=== PATIENT | male | born 1995 | race Caucasian/White ===

== ENCOUNTER 2017-01-06 07:07 | Emergency (ER) | payer MEDICAID ==
[~2017-01-06] VITALS: Ht 175.3 cm; Wt 75.0 kg
[~2017-01-06 07:07] MED LIST: INSU100I3 SQ; INSU3INS6 SUBCUT
[2017-01-06] MEDS ORDERED: ONDANSETRON HCL 4MG/2ML VIAL IV STA (07:38)
[2017-01-06] MEDS ORDERED: SODIUM CHLORIDE 0.9% 1,000 ML IV ONE (07:38)
[2017-01-06 07:57] VITALS: BP 128/76
[2017-01-06] MEDS ORDERED: KETOROLAC 30MG/ML VIAL IV ONE (08:00)
[2017-01-06 08:50] LABS: INR 1.2
[2017-01-06 08:56] LABS: BASOPHILS % 0.3 % (0.0-2.0); HEMOGLOBIN. 14.2 g/dL (14.0-18.0); LYMPHOCYTES % 11.3 % (20.0-50.0); MEAN CORPUSCULAR HEMOGLOBIN 29.3 pg (28.0-32.0); MEAN CORPUSCULAR VOLUME 84.5 fL (80.0-94.0); MEAN PLATELET VOLUME 8.6 fl (7.4-10.4); MONOCYTES % 7.7 % (2.0-8.0); NEUTROPHILS % 80.7 % (40.0-76.0); PLATELET 222 x1000/uL (130-400); RED BLOOD CELL COUNT 4.86 mill/uL (4.7-6.1); RED CELL DISTRIBUTION WIDTH 12.5 % (11.6-14.6)
[2017-01-06 08:58] LABS: CARBON DIOXIDE 26 mEq/L (21-32); CHLORIDE 105 mEq/L (98-107)
[2017-01-06 10:26] LABS: CLARITY URINE CLEAR (CLEAR); COLOR URINE YELLOW (YELLOW); GLUCOSE URINE 1+ (NEGATIVE); KETONES URINE 3+ (NEGATIVE); LEUKOCYTE ESTERASE URINE 2+ (NEGATIVE); NITRITE URINE NEGATIVE (NEGATIVE); OCCULT BLOOD URINE NEGATIVE (NEGATIVE); PROTEIN URINE NEGATIVE (NEGATIVE); SPECIFIC GRAVITY URINE 1.017 (1.005-1.030)
[2017-01-06 11:01] LABS: *AMPHETAMINES SCREEN URINE NEGATIVE (NEGATIVE); *BARBITURATES SCREEN URINE NEGATIVE (NEGATIVE); *BENZODIAZEPINES SCREEN URINE NEGATIVE (NEGATIVE); *COCAINE SCREEN URINE NEGATIVE (NEGATIVE); CANNABINOID URINE SCREEN PRESUMTIVE POSITIVE (NEGATIVE); METHADONE URINE SCREEN NEGATIVE (NEGATIVE); OPIATES URINE SCREEN PRESUMTIVE POSITIVE (NEGATIVE); PHENCYCLIDINE URINE SCREEN NEGATIVE (NEGATIVE)
== END 2017-01-06 11:35 | disposition home or self-care (01) ==
LOC: ER 07:16
DX: N39.0 Urinary tract infection, site not specified (principal); E11.9 Type 2 diabetes mellitus without complications; F12.10 Cannabis abuse, uncomplicated; Z79.4 Long term (current) use of insulin
CPT/HCPCS: 36415; 80053; 80305; 81001; 82962; 83690; 85025; 85610; 96361; 96374; 96375; 99284; J1885; J2405; Z7610; J7030

== ENCOUNTER 2017-03-18 18:06 | Emergency (ER) | payer MEDICAID ==
[~2017-03-18] VITALS: Ht 175.3 cm; Wt 98.0 kg
[~2017-03-18 18:06] MED LIST changes: +INSU100I13 SQ; +LANTUSUD SUBCUT; +OMEP20CA10 PO; +TRAM50TA94 PO
[2017-03-18] MEDS ORDERED: SODIUM CHLORIDE 0.9% 1,000 ML IV ONE (18:32)
[2017-03-18] MEDS ORDERED: KETOROLAC 30MG/ML VIAL IV STA (18:32)
[2017-03-18] MEDS ORDERED: FAMOTIDINE 20MG/2ML VIAL IV STA (18:32)
[2017-03-18] MEDS ORDERED: ONDANSETRON HCL 4MG/2ML VIAL IV STA (18:32)
[2017-03-18 19:11] LABS: HEMATOCRIT. 40.9 % (42.0-52.0); HEMOGLOBIN. 13.7 g/dL (14.0-18.0); MEAN CORPUSCULAR HEMOGLOBIN 28.2 pg (28.0-32.0); MEAN CORPUSCULAR VOLUME 84.2 fL (80.0-94.0); MEAN PLATELET VOLUME 8.7 fl (7.4-10.4); PLATELET 225 x1000/uL (130-400); RED BLOOD CELL COUNT 4.86 mill/uL (4.7-6.1); RED CELL DISTRIBUTION WIDTH 13.3 % (11.6-14.6)
[2017-03-18] MEDS ORDERED: LORAZEPAM 2MG/ML CPJ IV ONE (19:15)
[2017-03-18] MEDS ORDERED: METOCLOPRAMIDE HCL 10MG/2ML VIAL IV ONE (19:15)
[2017-03-18 19:17] LABS: INR 1.1; PROTHROMBIN TIME 11.7 sec (9.4-11.6)
[2017-03-18 19:24] LABS: CARBON DIOXIDE 24 mEq/L (21-32); CHLORIDE 102 mEq/L (98-107)
[2017-03-18 19:49] LABS: PLATELET ESTIMATE NORMAL
[2017-03-18 20:24] LABS: CLARITY URINE CLEAR (CLEAR); COLOR URINE YELLOW (YELLOW); KETONES URINE 4+ (NEGATIVE); LEUKOCYTE ESTERASE URINE NEGATIVE (NEGATIVE); NITRITE URINE NEGATIVE (NEGATIVE); OCCULT BLOOD URINE NEGATIVE (NEGATIVE); PROTEIN URINE NEGATIVE (NEGATIVE); SPECIFIC GRAVITY URINE 1.032 (1.005-1.030); UROBILINOGEN URINE 0.2 E.U./dL (0.2-1.0)
[2017-03-18 20:42] LABS: *AMPHETAMINES SCREEN URINE NEGATIVE (NEGATIVE); *BARBITURATES SCREEN URINE NEGATIVE (NEGATIVE); *BENZODIAZEPINES SCREEN URINE NEGATIVE (NEGATIVE); *COCAINE SCREEN URINE NEGATIVE (NEGATIVE); CANNABINOID URINE SCREEN PRESUMTIVE POSITIVE (NEGATIVE); METHADONE URINE SCREEN NEGATIVE (NEGATIVE); OPIATES URINE SCREEN NEGATIVE (NEGATIVE); PHENCYCLIDINE URINE SCREEN NEGATIVE (NEGATIVE)
[2017-03-19] MEDS ORDERED: SODIUM CHLORIDE 0.9% 1,000 ML IV ONE (01:36)
[2017-03-19] MEDS ORDERED: MORPHINE SULFATE 10 MG/ML CPJ IV ONE (01:45)
[2017-03-19] MEDS ORDERED: MORPHINE SULFATE 10 MG/ML CPJ IV NR (02:00)
[2017-03-19 04:22] VITALS: BP 121/72
== END 2017-03-19 04:35 | disposition home or self-care (01) ==
LOC: ER 18:06
DX: E11.65 Type 2 diabetes mellitus with hyperglycemia (principal); R10.13 Epigastric pain; F12.10 Cannabis abuse, uncomplicated; Z79.4 Long term (current) use of insulin
CPT/HCPCS: 36415; 74176; 80053; 80305; 81001; 82962; 83690; 85025; 85610; 96361; 96374; 96375; 99285; J1885; J2060; J2270; J2405; J2765; J3490; J7030

== ENCOUNTER 2017-06-10 19:34 | Emergency (ER) | payer MEDICAID ==
[~2017-06-10] VITALS: Ht 175.3 cm; Wt 84.0 kg
[2017-06-10] MEDS: KETOROLAC 30MG/ML VIAL IV STA (21:25)
[2017-06-10 21:46] LABS: CLARITY URINE CLEAR (CLEAR); COLOR URINE YELLOW (YELLOW); KETONES URINE 1+ (NEGATIVE); LEUKOCYTE ESTERASE URINE NEGATIVE (NEGATIVE); NITRITE URINE NEGATIVE (NEGATIVE); OCCULT BLOOD URINE NEGATIVE (NEGATIVE); PH URINE 8.5 (4.5-8.0); PROTEIN URINE NEGATIVE (NEGATIVE); UROBILINOGEN URINE 0.2 E.U./dL (0.2-1.0)
[2017-06-10 21:48] LABS: BASOPHILS % 0.4 % (0.0-2.0); EOSINOPHILS % 0.2 % (0.0-5.0); HEMATOCRIT. 42.2 % (42.0-52.0); HEMOGLOBIN. 14.2 g/dL (14.0-18.0); INR 1.1; MEAN CORPUSCULAR HEMOGLOBIN 28.8 pg (28.0-32.0); MEAN CORPUSCULAR VOLUME 85.6 fL (80.0-94.0); MEAN PLATELET VOLUME 7.9 fl (7.4-10.4); MONOCYTES % 6.1 % (2.0-8.0); NEUTROPHILS % 78.3 % (40.0-76.0); PLATELET 259 x1000/uL (130-400); PROTHROMBIN TIME 11.5 sec (9.4-11.6); RED BLOOD CELL COUNT 4.93 mill/uL (4.7-6.1); RED CELL DISTRIBUTION WIDTH 14.1 % (11.6-14.6)
[2017-06-10 21:52] LABS: CHLORIDE 103 mEq/L (98-107)
[2017-06-10] MEDS: METOCLOPRAMIDE HCL 10MG/2ML VIAL IV ONE (22:13)
[2017-06-11 00:06] VITALS: BP 101/68
== END 2017-06-11 00:10 | disposition home or self-care (01) ==
LOC: ER 20:45
DX: E10.43 Type 1 diabetes mellitus with diabetic autonomic (poly)neuropathy (principal); K31.84 Gastroparesis; R10.9 Unspecified abdominal pain; E10.65 Type 1 diabetes mellitus with hyperglycemia; F17.200 Nicotine dependence, unspecified, uncomplicated; Z79.4 Long term (current) use of insulin
CPT/HCPCS: 36415; 76700; 80053; 81003; 82962; 83690; 85025; 85610; 96374; 96375; 99285; J1885; J2765; Z7610

== ENCOUNTER 2017-06-11 13:24 | Emergency (ER) | payer MEDICAID ==
[~2017-06-11] VITALS: Ht 180.3 cm; Wt 81.0 kg
[2017-06-11] MEDS ORDERED: KETOROLAC 30MG/ML VIAL IV STA (14:46)
[2017-06-11] MEDS ORDERED: SODIUM CHLORIDE 0.9% 1,000 ML IV ONE (14:46)
[2017-06-11] MEDS ORDERED: ONDANSETRON HCL 4MG/2ML VIAL IV STA (14:46)
[2017-06-11] MEDS ORDERED: FAMOTIDINE 20MG/2ML VIAL IV ONE (15:00)
[2017-06-11 15:15] LABS: BASOPHILS % 0.2 % (0.0-2.0); EOSINOPHILS % 0.1 % (0.0-5.0); HEMATOCRIT. 46.7 % (42.0-52.0); HEMOGLOBIN. 15.3 g/dL (14.0-18.0); LYMPHOCYTES % 14.7 % (20.0-50.0); MEAN CORPUSCULAR HEMOGLOBIN 28.6 pg (28.0-32.0); MEAN CORPUSCULAR VOLUME 87.1 fL (80.0-94.0); MEAN PLATELET VOLUME 8.8 fl (7.4-10.4); MONOCYTES % 5.7 % (2.0-8.0); NEUTROPHILS % 79.3 % (40.0-76.0); PLATELET 296 x1000/uL (130-400); RED BLOOD CELL COUNT 5.36 mill/uL (4.7-6.1); RED CELL DISTRIBUTION WIDTH 14.3 % (11.6-14.6)
[2017-06-11 15:20] LABS: INR 1.1; PROTHROMBIN TIME 11.6 sec (9.4-11.6)
[2017-06-11 15:23] LABS: CHLORIDE 100 mEq/L (98-107)
[2017-06-11 15:29] LABS: ETHANOL BLOOD < 10 mg/dL
[2017-06-11 16:01] LABS: CLARITY URINE CLEAR (CLEAR); COLOR URINE YELLOW (YELLOW); KETONES URINE 4+ (NEGATIVE); LEUKOCYTE ESTERASE URINE NEGATIVE (NEGATIVE); NITRITE URINE NEGATIVE (NEGATIVE); OCCULT BLOOD URINE NEGATIVE (NEGATIVE); PH URINE 5.5 (4.5-8.0); PROTEIN URINE NEGATIVE (NEGATIVE); SPECIFIC GRAVITY URINE 1.043 (1.005-1.030); UROBILINOGEN URINE 0.2 E.U./dL (0.2-1.0)
[2017-06-11 16:12] LABS: *AMPHETAMINES SCREEN URINE NEGATIVE (NEGATIVE); *BARBITURATES SCREEN URINE NEGATIVE (NEGATIVE); *BENZODIAZEPINES SCREEN URINE NEGATIVE (NEGATIVE); *COCAINE SCREEN URINE NEGATIVE (NEGATIVE); CANNABINOID URINE SCREEN PRESUMTIVE POSITIVE (NEGATIVE); METHADONE URINE SCREEN NEGATIVE (NEGATIVE); OPIATES URINE SCREEN NEGATIVE (NEGATIVE); PHENCYCLIDINE URINE SCREEN NEGATIVE (NEGATIVE)
[2017-06-11 17:40] VITALS: BP 140/97
== END 2017-06-11 18:03 | disposition home or self-care (01) ==
LOC: ER 13:24
DX: R11.2 Nausea with vomiting, unspecified (principal); R10.13 Epigastric pain; E10.8 Type 1 diabetes mellitus with unspecified complications; F12.90 Cannabis use, unspecified, uncomplicated; Z79.4 Long term (current) use of insulin; Z79.899 Other long term (current) drug therapy
CPT/HCPCS: 36415; 74176; 80053; 80305; 81003; 82962; 83690; 85025; 85610; 96361; 96374; 96375; 99285; G0482; J1885; J2405; J3490; J7030; Z7610

== ENCOUNTER 2017-06-30 15:22 | Emergency (ER) | payer MEDICAID ==
[~2017-06-30] VITALS: Ht 172.7 cm; Wt 73.0 kg
[2017-06-30] MEDS ORDERED: SODIUM CHLORIDE 0.9% 1,000 ML IV ONE (18:36)
[2017-06-30] MEDS ORDERED: ONDANSETRON HCL 4MG/2ML VIAL IV STA (18:36)
[2017-06-30] MEDS ORDERED: KETOROLAC 30MG/ML VIAL IV STA (18:36)
[2017-06-30 19:02] LABS: BASOPHILS % 0.3 % (0.0-2.0); HEMATOCRIT. 40.3 % (42.0-52.0); HEMOGLOBIN. 14.1 g/dL (14.0-18.0); MEAN PLATELET VOLUME 8.3 fl (7.4-10.4); MONOCYTES % 5.4 % (2.0-8.0); NEUTROPHILS % 82.3 % (40.0-76.0); PLATELET 217 x1000/uL (130-400); RED BLOOD CELL COUNT 4.68 mill/uL (4.7-6.1); RED CELL DISTRIBUTION WIDTH 14.1 % (11.6-14.6)
[2017-06-30 19:07] LABS: CHLORIDE 99 mEq/L (98-107)
[2017-06-30 19:09] LABS: INR 1.1; PROTHROMBIN TIME 11.8 sec (9.4-11.6)
[2017-06-30 19:12] LABS: ETHANOL BLOOD < 10 mg/dL
[2017-06-30 20:50] VITALS: BP 151/94
== END 2017-06-30 20:50 | disposition home or self-care (01) ==
LOC: ER 15:27
DX: R10.33 Periumbilical pain (principal); E11.65 Type 2 diabetes mellitus with hyperglycemia; F17.200 Nicotine dependence, unspecified, uncomplicated; F12.10 Cannabis abuse, uncomplicated; Z79.4 Long term (current) use of insulin; Z87.11 Personal history of peptic ulcer disease
CPT/HCPCS: 36415; 74176; 80053; 83690; 85025; 85610; 96374; 96375; 99285; G0482; J1885; J2405; J7030

== ENCOUNTER 2017-07-23 16:57 | Emergency (ER) | payer MEDICAID ==
[~2017-07-23] VITALS: Ht 154.9 cm; Wt 85.0 kg
[2017-07-23] MEDS ORDERED: ONDANSETRON HCL 4MG/2ML VIAL IV STA (17:42)
[2017-07-23] MEDS ORDERED: MORPHINE SULFATE 4 MG/ML CPJ (NOT FOR IM USE) IV STA (17:42)
[2017-07-23] MEDS ORDERED: SODIUM CHLORIDE 0.9% 1,000 ML IV ONE (17:42)
[2017-07-23 18:07] LABS: BASOPHILS % 0.3 % (0.0-2.0); EOSINOPHILS % 0.1 % (0.0-5.0); HEMATOCRIT. 43.9 % (42.0-52.0); HEMOGLOBIN. 15.1 g/dL (14.0-18.0); MEAN CORPUSCULAR HEMOGLOBIN 29.6 pg (28.0-32.0); MEAN CORPUSCULAR VOLUME 86.1 fL (80.0-94.0); MONOCYTES % 5.4 % (2.0-8.0); NEUTROPHILS % 83.2 % (40.0-76.0); PLATELET 251 x1000/uL (130-400); RED CELL DISTRIBUTION WIDTH 13.8 % (11.6-14.6)
[2017-07-23 18:12] LABS: CHLORIDE 99 mEq/L (98-107)
[2017-07-23 18:23] LABS: BETA HYDROXYBUTYRATE 2.6 mMol/L (0.0-0.3)
[2017-07-23] MEDS ORDERED: MORPHINE SULFATE 4 MG/ML CPJ (NOT FOR IM USE) IV ONE (20:00)
[2017-07-23] MEDS ORDERED: IOHEXOL-300 100 ML BOTTLE ONE (22:28)
[2017-07-23] MEDS ORDERED: KETOROLAC 30MG/ML VIAL IV ONE (23:15)
[2017-07-24] MEDS ORDERED: MORPHINE SULFATE 10 MG/ML CPJ IV ONE (02:00)
[2017-07-24] MEDS ORDERED: INSULIN REGULAR (HUMULIN R) 300UNITS/3ML SUBCUT ONE (05:00)
[2017-07-24] MEDS ORDERED: METOCLOPRAMIDE HCL 10MG/2ML VIAL IV ONE (05:00)
[2017-07-24] MEDS ORDERED: HYDROCODONE/ACETAMINOPHEN 5/325MG TABLET PO ONE (05:00)
[2017-07-24 05:29] VITALS: BP 122/55
== END 2017-07-24 05:29 | disposition home or self-care (01) ==
LOC: ER 16:57
DX: R10.11 Right upper quadrant pain (principal); R10.13 Epigastric pain; R11.14 Bilious vomiting; E11.9 Type 2 diabetes mellitus without complications; F12.10 Cannabis abuse, uncomplicated; Z79.4 Long term (current) use of insulin
CPT/HCPCS: 36415; 74177; 80053; 82010; 82962; 83690; 85025; 96361; 96372; 96374; 96375; 96376; 99285; J1815; J1885; J2270; J2405; J2765; J7030; Q9967

== ENCOUNTER 2017-07-25 14:55 | Emergency (ER) | payer MEDICAID ==
[~2017-07-25] VITALS: Ht 177.8 cm; Wt 75.0 kg
[2017-07-25] MEDS ORDERED: ONDANSETRON HCL 4MG/2ML VIAL IV STA (16:00)
[2017-07-25] MEDS ORDERED: SODIUM CHLORIDE 0.9% 1,000 ML IV ONE ×2 (16:00→18:00)
[2017-07-25 16:18] LABS: BASOPHILS % 0.7 % (0.0-2.0); EOSINOPHILS % 0.2 % (0.0-5.0); HEMATOCRIT. 42.8 % (42.0-52.0); HEMOGLOBIN. 14.7 g/dL (14.0-18.0); LYMPHOCYTES % 10.5 % (20.0-50.0); MEAN CORPUSCULAR HEMOGLOBIN 29.7 pg (28.0-32.0); MEAN CORPUSCULAR VOLUME 86.6 fL (80.0-94.0); MEAN PLATELET VOLUME 8.6 fl (7.4-10.4); MONOCYTES % 5.5 % (2.0-8.0); NEUTROPHILS % 83.1 % (40.0-76.0); PLATELET 226 x1000/uL (130-400); RED BLOOD CELL COUNT 4.94 mill/uL (4.7-6.1); RED CELL DISTRIBUTION WIDTH 14.2 % (11.6-14.6)
[2017-07-25 16:21] LABS: CHLORIDE 97 mEq/L (98-107)
[2017-07-25 16:22] LABS: INR 1.1; PROTHROMBIN TIME 10.9 sec (9.4-11.6)
[2017-07-25 16:41] LABS: CLARITY URINE CLEAR (CLEAR); COLOR URINE YELLOW (YELLOW); KETONES URINE 1+ (NEGATIVE); LEUKOCYTE ESTERASE URINE NEGATIVE (NEGATIVE); NITRITE URINE NEGATIVE (NEGATIVE); OCCULT BLOOD URINE NEGATIVE (NEGATIVE); PROTEIN URINE NEGATIVE (NEGATIVE); SPECIFIC GRAVITY URINE 1.035 (1.005-1.030); UROBILINOGEN URINE 0.2 E.U./dL (0.2-1.0)
[2017-07-25] MEDS ORDERED: MORPHINE SULFATE 4 MG/ML CPJ (NOT FOR IM USE) IV ONE (17:45)
[2017-07-25] MEDS ORDERED: DIPHENHYDRAMINE 50MG/ML VIAL IV ONE (17:45)
[2017-07-25] MEDS ORDERED: PROCHLORPERAZINE 10MG/2ML VIAL IV ONE (17:45)
[2017-07-25] MEDS ORDERED: IOHEXOL-300 100 ML BOTTLE ONE (19:09)
[2017-07-25] MEDS ORDERED: MAGNESIUM/ALUMINUM HYDROXIDE/SIMETHICONE 30ML UDC PO STA (20:26)
[2017-07-25] MEDS ORDERED: FAMOTIDINE 20MG/2ML VIAL IV STA (20:26)
[2017-07-25] MEDS ORDERED: FENTANYL CITRATE/PF 50MCG/ML 2ML VIAL IV ONE (20:30)
[2017-07-25 22:26] VITALS: BP 126/70
== END 2017-07-25 22:27 | disposition home or self-care (01) ==
LOC: ER 15:01
DX: R10.13 Epigastric pain (principal); F12.10 Cannabis abuse, uncomplicated; E11.65 Type 2 diabetes mellitus with hyperglycemia; E88.09 Other disorders of plasma-protein metabolism, not elsewhere classified; E87.1 Hypo-osmolality and hyponatremia; D72.829 Elevated white blood cell count, unspecified; Z79.4 Long term (current) use of insulin
CPT/HCPCS: 36415; 74177; 80053; 81003; 82962; 83690; 85025; 85610; 96361; 96374; 96375; 99285; J0780; J1200; J2270; J2405; J3010; J3490; J7030; Q9967

== ENCOUNTER 2017-10-22 21:59 | Inpatient (IN) | payer MEDICAID ==
[~2017-10-22] VITALS: Ht 170.2 cm; Wt 88.2 kg
[2017-10-22] MEDS ORDERED: SODIUM CHLORIDE 0.9% 1,000 ML IV ONE (22:44)
[2017-10-22] MEDS ORDERED: METOCLOPRAMIDE HCL 10MG/2ML VIAL IV ONE (22:45)
[2017-10-22] MEDS ORDERED: VISCOUS LIDOCAINE 2% 15 ML UDC MM STA (22:58)
[2017-10-22] MEDS ORDERED: MAGNESIUM/ALUMINUM HYDROXIDE/SIMETHICONE 30ML UDC PO ONE (23:00)
[2017-10-22 23:13] LABS: HEMATOCRIT. 43.5 % (42.0-52.0); HEMOGLOBIN. 14.9 g/dL (14.0-18.0); MEAN CORPUSCULAR HEMOGLOBIN 29.7 pg (28.0-32.0); MEAN CORPUSCULAR VOLUME 86.9 fL (80.0-94.0); MEAN PLATELET VOLUME 8.8 fl (7.4-10.4); PLATELET 241 x1000/uL (130-400); RED BLOOD CELL COUNT 5.01 mill/uL (4.7-6.1); RED CELL DISTRIBUTION WIDTH 13.5 % (11.6-14.6)
[2017-10-22 23:15] LABS: CHLORIDE 103 mEq/L (98-107)
[2017-10-22 23:17] LABS: INR 1.1; PROTHROMBIN TIME 11.1 sec (9.4-11.6)
[2017-10-22 23:23] LABS: BETA HYDROXYBUTYRATE 5.5 mMol/L (0.0-0.3); PLATELET ESTIMATE NORMAL
[2017-10-22 23:39] LABS: CLARITY URINE CLEAR (CLEAR); COLOR URINE YELLOW (YELLOW); KETONES URINE 4+ (NEGATIVE); LEUKOCYTE ESTERASE URINE NEGATIVE (NEGATIVE); NITRITE URINE NEGATIVE (NEGATIVE); OCCULT BLOOD URINE NEGATIVE (NEGATIVE); PROTEIN URINE NEGATIVE (NEGATIVE); SPECIFIC GRAVITY URINE 1.035 (1.005-1.030); UROBILINOGEN URINE 0.2 E.U./dL (0.2-1.0)
[2017-10-22] MEDS ORDERED: POTASSIUM CHLORIDE INJ 40 MEQ in DEXT 5% WATER 250 ML IV ONE (23:45)
[2017-10-22] MEDS ORDERED: SODIUM CHLORIDE 0.9% 1000ML BAG (SEPSIS BOLUS) IV ONE (23:45)
[2017-10-22] MEDS ORDERED: INSULIN REGULAR (DRIP) 100 UNITS in SODIUM CHLORIDE 0.9% 100 ML IV NR (23:59)
[2017-10-23] VITALS (33 sets, daily range): BP systolic 96–156; BP diastolic 47–95
[2017-10-23 00:01] LABS: PHOSPHORUS 3.1 mg/dL (2.5-4.9)
[2017-10-23 00:33] LABS: CHLORIDE 106 mEq/L (98-107)
[2017-10-23] MEDS: KCL 20MEQ/100ML PREMIX 100 ML IV SCH ×2 (01:59→04:51)
[2017-10-23] MEDS ORDERED: HALOPERIDOL LACTATE 5MG/ML VIAL IM ONE (02:00)
[2017-10-23 02:13] LABS: CHLORIDE 109 mEq/L (98-107)
[2017-10-23 04:17] LABS: CHLORIDE 113 mEq/L (98-107)
[2017-10-23] MEDS ORDERED: ONDANSETRON HCL 4MG/2ML VIAL IV PRN (05:15)
[2017-10-23] MEDS ORDERED: INSULIN REGULAR (DRIP) 100 UNITS in SODIUM CHLORIDE 0.9% 99 ML IV PRN (05:30)
[2017-10-23] MEDS: DEXT 5%/0.45% NACL KCL 20MEQ/L 1,000 ML IV SCH ×2 (05:49→15:46)
[2017-10-23] MEDS: MORPHINE SULFATE 4 MG/ML CPJ (NOT FOR IM USE) IV PRN ×4 (08:33→22:30)
[2017-10-23] MEDS ORDERED: PANTOPRAZOLE SODIUM 40 MG/VIAL IV SCH (09:00)
[2017-10-23 09:35] LABS: CHLORIDE 111 mEq/L (98-107)
[2017-10-23 09:42] LABS: LDL CHOLESTEROL 69 mg/dL (5-100)
[2017-10-23 09:43] LABS: HDL CHOLESTEROL 68 mg/dL (40-59)
[2017-10-23] MEDS: ENOXAPARIN 40MG/0.4ML SYR SUBCUT SCH (09:55)
[2017-10-23 10:12] LABS: METHADONE URINE SCREEN NEGATIVE (NEGATIVE); OPIATES URINE SCREEN NEGATIVE (NEGATIVE)
[2017-10-23 10:13] LABS: PHENCYCLIDINE URINE SCREEN NEGATIVE (NEGATIVE)
[2017-10-23 10:14] LABS: *AMPHETAMINES SCREEN URINE NEGATIVE (NEGATIVE); *BARBITURATES SCREEN URINE NEGATIVE (NEGATIVE)
[2017-10-23 10:15] LABS: *BENZODIAZEPINES SCREEN URINE NEGATIVE (NEGATIVE); *COCAINE SCREEN URINE NEGATIVE (NEGATIVE); CANNABINOID URINE SCREEN PRESUMTIVE POSITIVE (NEGATIVE)
[2017-10-23 12:36] LABS: CHLORIDE 111 mEq/L (98-107)
[2017-10-23] MEDS ORDERED: DEXTROSE 50% WATER 50ML SYRINGE IV PRN (14:00)
[2017-10-23 16:24] LABS: CHLORIDE 111 mEq/L (98-107)
[2017-10-23] MEDS: BLOOD SUGAR DIAGNOSTIC STRIP TEST SCH ×2 (18:01→21:40)
[2017-10-23] MEDS: INSULIN LISPRO 100 UNITS/ML SUBCUT SCH ×2 (18:02→21:40)
[2017-10-23] MEDS ORDERED: INSULIN LISPRO 100 UNITS/ML SUBCUT SCH (18:20)
[2017-10-23] MEDS ORDERED: INSULIN GLARGINE UD 100 UNITS/ML SYR SUBCUT SCH (18:30)
[2017-10-23 20:36] LABS: CHLORIDE 108 mEq/L (98-107)
[2017-10-24] VITALS (16 sets, daily range): BP systolic 108–141; BP diastolic 68–98
[2017-10-24 01:25] LABS: CHLORIDE 105 mEq/L (98-107)
[2017-10-24] MEDS: DEXT 5%/0.45% NACL KCL 20MEQ/L 1,000 ML IV SCH ×2 (02:27→12:00)
[2017-10-24] MEDS: MORPHINE SULFATE 4 MG/ML CPJ (NOT FOR IM USE) IV PRN ×2 (03:20→07:36)
[2017-10-24 04:15] LABS: BASOPHILS % 0.8 % (0.0-2.0); EOSINOPHILS % 0.5 % (0.0-5.0); HEMATOCRIT. 39.5 % (42.0-52.0); HEMOGLOBIN. 13.2 g/dL (14.0-18.0); LYMPHOCYTES % 12.1 % (20.0-50.0); MEAN CORPUSCULAR HEMOGLOBIN 29.2 pg (28.0-32.0); MEAN CORPUSCULAR VOLUME 87.2 fL (80.0-94.0); MEAN PLATELET VOLUME 8.2 fl (7.4-10.4); MONOCYTES % 10.1 % (2.0-8.0); NEUTROPHILS % 76.5 % (40.0-76.0); PLATELET 161 x1000/uL (130-400); RED BLOOD CELL COUNT 4.53 mill/uL (4.7-6.1); RED CELL DISTRIBUTION WIDTH 13.6 % (11.6-14.6)
[2017-10-24 04:25] LABS: CHLORIDE 104 mEq/L (98-107)
[2017-10-24] MEDS: BLOOD SUGAR DIAGNOSTIC STRIP TEST SCH ×2 (07:25→11:23)
[2017-10-24] MEDS: ENOXAPARIN 40MG/0.4ML SYR SUBCUT SCH (08:02)
[2017-10-24] MEDS: INSULIN LISPRO 100 UNITS/ML SUBCUT SCH ×2 (08:03→13:04)
[2017-10-24 09:20] LABS: CHLORIDE 102 mEq/L (98-107)
[2017-10-24] MEDS ORDERED: INSULIN GLARGINE UD 100 UNITS/ML SYR SUBCUT SCH (10:00)
== END 2017-10-24 13:27 | disposition home or self-care (01) | DRG 812 ==
LOC: ER 21:59 → CVICU 23:47 → EDBEDREQTM 10-23 00:13 → EDBEDREQSVC 10-23 00:13 → EDBEDREQ 10-23 00:13 → ENRESERV 10-23 02:54 → 8WST 10-24 08:43
PROVIDERS: ADMIT Internal Medicine; ATTEND Internal Medicine
DX: T40.7X1A Poisoning by cannabis (derivatives), accidental (unintentional), initial encounter (principal); E11.10 Type 2 diabetes mellitus with ketoacidosis without coma; D72.829 Elevated white blood cell count, unspecified; F10.20 Alcohol dependence, uncomplicated; F12.90 Cannabis use, unspecified, uncomplicated; Z79.899 Other long term (current) drug therapy; Z79.4 Long term (current) use of insulin; Z71.41 Alcohol abuse counseling and surveillance of alcoholic; R11.10 Vomiting, unspecified
CPT/HCPCS: 36415; 71045; 80048; 80053; 80061; 80305; 81003; 82010; 82962; 83605; 83690; 83735; 84100; 85025; 85610; 96365; 96366; 96372; 96375; 99291; C9113; J1630; J1650; J1815; J2270; J2765; J3480; J7030; J7050

== ENCOUNTER 2018-01-16 15:52 | Emergency (ER) | payer MEDICAID ==
[~2018-01-16] VITALS: Ht 175.3 cm; Wt 89.0 kg
[~2018-01-16 15:52] MED LIST changes: -INSU100I13 SQ; -INSU3INS6 SUBCUT
[2018-01-16 15:57] VITALS: BP 163/94
[2018-01-16] MEDS ORDERED: ONDANSETRON HCL 4MG/2ML INJ IV STA (16:18)
[2018-01-16] MEDS ORDERED: KETOROLAC 30MG/ML VIAL IV STA (16:18)
[2018-01-16] MEDS ORDERED: SODIUM CHLORIDE 0.9% 1,000 ML IV ONE (16:18)
[2018-01-16 17:00] LABS: CHLORIDE 101 mEq/L (98-107)
[2018-01-16] MEDS ORDERED: HALOPERIDOL LACTATE 5MG/ML VIAL IM ONE (17:00)
[2018-01-16 17:01] LABS: INR 1.1; PROTHROMBIN TIME 10.6 sec (9.1-11.1)
[2018-01-16 17:04] LABS: BASOPHILS % 0.5 % (0.0-2.0); EOSINOPHILS % 0.2 % (0.0-5.0); HEMATOCRIT. 43.1 % (42.0-52.0); HEMOGLOBIN. 14.6 g/dL (14.0-18.0); LYMPHOCYTES % 13.5 % (20.0-50.0); MEAN CORPUSCULAR HEMOGLOBIN 28.7 pg (28.0-32.0); MEAN CORPUSCULAR VOLUME 84.7 fL (80.0-94.0); MEAN PLATELET VOLUME 8.6 fl (7.4-10.4); MONOCYTES % 5.8 % (2.0-8.0); PLATELET 265 x1000/uL (130-400); RED BLOOD CELL COUNT 5.09 mill/uL (4.7-6.1); RED CELL DISTRIBUTION WIDTH 15.7 % (11.6-14.6)
[2018-01-16 17:06] LABS: ETHANOL BLOOD < 10 mg/dL
== END 2018-01-16 19:25 | disposition home or self-care (01) ==
LOC: ER 15:52
DX: R10.33 Periumbilical pain (principal); E11.9 Type 2 diabetes mellitus without complications; Z79.4 Long term (current) use of insulin; Z87.19 Personal history of other diseases of the digestive system
CPT/HCPCS: 36415; 74176; 80053; 82962; 83690; 85025; 85610; 96361; 96374; 96375; 99285; G0482; J1885; J2405; J7030; Z7610